=== PATIENT | male | born 2000 | race Caucasian/White ===

== ENCOUNTER 2020-10-24 22:38 | Emergency (ER) | payer OTHER ==
[~2020-10-24] VITALS: Ht 180.3 cm; Wt 63.5 kg
[2020-10-25] MEDS ORDERED: NAPROSYN500 MG PO (00:09)
[2020-10-25 00:16] VITALS: BP 124/83
== END 2020-10-25 00:19 | disposition home or self-care (01) ==
LOC: ER 22:38
DX: M25.511 Pain in right shoulder (principal); W01.0XXA Fall on same level from slipping, tripping and stumbling without subsequent striking against object, initial encounter; Y93.89 Activity, other specified; Y92.89 Other specified places as the place of occurrence of the external cause; Y99.8 Other external cause status

== ENCOUNTER 2021-01-09 00:58 | Emergency (ER) | payer OTHER ==
[~2021-01-09] VITALS: Ht 170.2 cm; Wt 65.8 kg
[~2021-01-09 00:58] MED LIST: NAPROSYN500 MG PO
[2021-01-09 01:33] LABS: AMP/METHAMP Negative (Negative); BARBITURATES Negative (Negative); BENZODIAZEPINES Negative (Negative); COCAINE Negative (Negative); METHADONE Negative (Negative); OPIATES Negative (Negative); PCP Negative (Negative)
[2021-01-09 01:38] LABS: ABSOLUTE NEUTROPHILS 4.5 thou/uL (1.4-8.2); BASOPHILS 0.6 % (0.0-2.0); EOSINOPHILS 1.7 % (0.0-3.0); HEMATOCRIT 43.3 % (42.0-52.0); HEMOGLOBIN 14.8 gm/dL (14.0-18.0); MCH 30.6 pg (26.0-34.0); MCHC 34.2 g/dL (28.0-37.0); MCV 89.5 fL (80.0-100.0); MONOCYTES 7.6 % (1.0-8.0); PLATELET COUNT 221 thou/uL (150-400); POLYS 64.1 % (36.0-66.0); RBC 4.84 mil/uL (4.50-6.00); RDW 13.1 % (10.5-14.5)
[2021-01-09 01:40] LABS: CALCIUM 8.9 mg/dL (8.5-10.1); CREATININE 0.9 mg/dL (0.7-1.3); POTASSIUM 3.5 mmol/L (3.5-5.1)
[2021-01-09 01:45] LABS: ALBUMIN 4.2 g/dL (3.4-5.0); TOTAL BILIRUBIN 0.4 mg/dL (0.2-1.0); TOTAL PROTEIN 7.3 g/dL (6.4-8.2)
[2021-01-09 02:04] LABS: URINE BILIRUBIN NEGATIVE (Negative); URINE BLOOD NEGATIVE (Negative); URINE CLARITY CLEAR; URINE COLOR YELLOW; URINE GLUCOSE-RANDOM* NEGATIVE (Negative); URINE KETONES NEGATIVE (Negative); URINE LEUKOCYTES-REFLEX NEGATIVE (Negative); URINE NITRITE-REFLEX NEGATIVE (Negative); URINE PROTEIN (DIPSTICK) NEGATIVE (Negative); URINE UROBILINOGEN 0.2 E.U./dl (0.2-1.0)
[2021-01-09 02:21] VITALS: BP 105/78
--- NOTE | 2021-01-09 07:16 | EKG ---
[place] [address] [facility] [place] [address] ELECTROCARDIOGRAM REPORT Name: PING JAMES [id number] Admission: 01/09/21 Attend Phys: Discharge: 01/09/21 Date of : 89 Report #: [id number] [facility] ED Test Date: 2021-01-09 Test Time: 01:16:43 Pat Name: PING JAMES Department: Room: Gender: Design Director: : 2000 Requested By: Joel Gutiérrez Order Number: [id number] MD: Aries Hooker Measurements Intervals [place] Rate: 65 P: 15 KS: 135 QRS: 45 QRSD: 87 T: 33 QT: 381 QTc: 397 Interpretive Statements Sinus rhythm RSR' in V1 or V2, probably normal variant ST elev, probable normal early repol pattern No previous ECG available for comparison Electronically Signed On 01-09-2021 7:16:17 CDT by Aries Hooker [email or web address] <ELECTRONICALLY SIGNED> By: Aries Hooker MD, [facility] 01/09/21 [id number] Aries Hooker MD, FACC /EPI
== END 2021-01-09 02:23 | disposition home or self-care (01) ==
LOC: ER 00:58
PROVIDERS: Emergency Medicine
DX: R53.81 Other malaise (principal); Z79.1 Long term (current) use of non-steroidal anti-inflammatories (NSAID)